=== PATIENT | female | born 1975 | race Caucasian/White ===

== ENCOUNTER 2018-08-11 16:33 | Emergency (ER) | payer OTHER ==
[~2018-08-11] VITALS: Ht 154.9 cm; Wt 59.0 kg
[2018-08-11] MEDS ORDERED: PRILOSEC OTC20 MG PO (18:55)
[2018-08-11] MEDS ORDERED: CEPHALEXIN500 MG PO (19:03)
== END 2018-08-11 19:22 | disposition home or self-care (01) ==
LOC: ED 16:33
DX: S50.861A Insect bite (nonvenomous) of right forearm, initial encounter (principal); L08.9 Local infection of the skin and subcutaneous tissue, unspecified; W57.XXXA Bitten or stung by nonvenomous insect and other nonvenomous arthropods, initial encounter; F17.200 Nicotine dependence, unspecified, uncomplicated; Z79.899 Other long term (current) drug therapy
CPT/HCPCS: 99282